=== PATIENT | female | born 1975 | race African-American/Black ===

== ENCOUNTER 2017-04-25 19:01 | Emergency (ER) | payer BC ==
[~2017-04-25] VITALS: Ht 162.6 cm; Wt 98.5 kg
[2017-04-25 19:06] VITALS: TEMP 36.5; Ht 162.6 cm; Wt 98.5 kg
[2017-04-25] MEDS ORDERED: FERR1TAB13 PO (19:45)
[2017-04-25] MEDS ORDERED: CHOL1000 PO (19:45)
[2017-04-25] MEDS ORDERED: SODIUM CHLORIDE 0.9% 500ML 500 ML IV STA (20:26)
--- NOTE | 2017-04-25 20:27 | EMERGENCY ROOM VISIT NOTE ---
History Report prepared by Gwynibe: Radha Johnson Under the Supervision of: Dr. Corona Dolan M.D. First contact with patient: 20:21 Chief Complaint: CHEST PAIN Stated Complaint: LITTLE CHEST PAIN, TINGLING SENSATIONS, BACK PAIN Nursing Triage Summary: Pt c/o bilateral chest pain that started one week ago, pt states "it's more like breast pain". Pt also c/o bilateral hand and feet tingling. Denies SOB or radiation of pain into arm or jaw. History of Present Illness The patient is a 41 year old female who presents to the Emergency Room with complaints of intermittent chest pain for the past 1 week. She rates her discomfort as a 5/10 in severity. The pain does not radiate into her arms or jaw. She also complains of "tingling" in her bilateral hands and feet. Her LMP was last week and normal. She does admit to some clear vaginal discharge recently. She denies any recent shortness of breath. 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 A total of 10 systems reviewed and were otherwise negative. Past Medical & Surgical Medical Problems: (1) Asthma (2) Ectopic (3) Gallstone Family History Cancer Hypertension Social History Smoking Status: Never Smoker Alcohol Use: occasionally Drug Use: none Marital Status: single Housing Status: lives alone Occupation Status: employed Current/Historical Medications Scheduled Cholecalciferol (Vitamin D3), 1,000 INTER.UNIT PO TID Ferrous Sulfate (Kp Ferrous Sulfate), 325 MG PO BID Allergies Coded Allergies: Penicillins (Unverified Allergy, Unknown, HIVES, 04/25/17) Physical Exam Vital Signs Date Time Temp Pulse Resp B/P (MAP) Pulse Ox O2 Delivery O2 Flow Rate FiO2 04/25/17 22:55 76 139/92 04/25/17 22:45 74 16 136/90 100 Room Air 04/25/17 20:38 68 16 139/92 100 Room Air 04/25/17 20:31 Room Air 04/25/17 20:31 Room Air 04/25/17 19:30 77 04/25/17 19:24 Room Air 04/25/17 19:06 36.5 80 20 142/91 99 Room Air Physical Exam GENERAL: Patient is a healthy-appearing well-nourished 41 year old female HEAD: Normocephalic atraumatic EYES: Ocular movements intact pupils equal and react to light OROPHARYNX mucous membranes are moist no exudates present no erythema or edema present NECK: Supple no nuchal rigidity CHEST: Good equal expansion LUNGS: Clear and equal to auscultation CARDIAC: Normal S1 and S2 ABDOMEN: Soft nontender no guarding BACK: No CVA tenderness EXTREMITIES: No pain upon palpation normal muscle strength in all groups no clubbing cyanosis or edema NEURO: Patient is following commands and answering questions appropriately. Alert and oriented x3 Cranial Nerves 2-12 grossly intact Medical Decision & Procedures ER Provider Diagnostic Interpretation: Radiology results as stated below per my review and radiologist interpretation: CHEST ONE VIEW PORTABLE HISTORY: 41 years-old Female CHEST PAIN acute atypical chest pain COMPARISON: None available TECHNIQUE: Portable upright AP view of the chest FINDINGS: Cardiac silhouette is upper limits of normal. No pneumothorax, pleural effusion or focal airspace consolidation. There is mild right hemidiaphragmatic elevation. Bones are grossly intact. IMPRESSION: Mild right hemidiaphragm elevation with otherwise unremarkable chest. The above report was generated using voice recognition software. It may contain grammatical, syntax or spelling errors. Electronically signed by: León Childs M.D. 04/25/2017 9:18 PM Laboratory Results 04/25/17 19:20 Red Blood Count 5.10, Mean Corpuscular Volume 71.8, Mean Corpuscular Hemoglobin 21.2, Mean Corpuscular Hemoglobin Concent 29.5, Mean Platelet Volume 11.0, Neutrophils (%) (Auto) 53.8, Lymphocytes (%) (Auto) 36.7, Monocytes (%) (Auto) 8.1, Eosinophils (%) (Auto) 0.9, Basophils (%) (Auto) 0.3, Neutrophils # (Auto) 3.51, Lymphocytes # (Auto) 2.39, Monocytes # (Auto) 0.53, Eosinophils # (Auto) 0.06, Basophils # (Auto) 0.02 04/25/17 19:20 Test 04/25/17 19:20 04/25/17 21:50 White Blood Count 6.52 K/uL (4.8-10.8) Red Blood Count 5.10 M/uL (4.2-5.4) Hemoglobin 10.8 g/dL (12.0-16.0) Hematocrit 36.6 % (37-47) Mean Corpuscular Volume 71.8 fL (80-100) Mean Corpuscular Hemoglobin 21.2 pg (25-34) Mean Corpuscular Hemoglobin Concent 29.5 g/dl (32-36) Platelet Count 347 K/uL (130-400) Mean Platelet Volume 11.0 fL (7.4-10.4) Neutrophils (%) (Auto) 53.8 % Lymphocytes (%) (Auto) 36.7 % Monocytes (%) (Auto) 8.1 % Eosinophils (%) (Auto) 0.9 % Basophils (%) (Auto) 0.3 % Neutrophils # (Auto) 3.51 K/uL (1.4-6.5) Lymphocytes # (Auto) 2.39 K/uL (1.2-3.4) Monocytes # (Auto) 0.53 K/uL (0.11-0.59) Eosinophils # (Auto) 0.06 K/uL (0-0.5) Basophils # (Auto) 0.02 K/uL (0-0.2) RDW Standard Deviation 43.0 fL (36.4-46.3) RDW Coefficient of Variation 17.3 % (11.5-14.5) Immature Granulocyte % (Auto) 0.2 % Immature Granulocyte # (Auto) 0.01 K/uL (0.00-0.02) Nucleated RBC Absolute Count (auto) 0.05 K/uL (0-0) Nucleated Red Blood Cells % 0.7 % Hypochromasia PRESENT Anisocytosis PRESENT Anion Gap 10.0 mmol/L (3-11) Est Creatinine Clear Calc Drug Dose 108.2 ml/min Estimated GFR () 109.4 Estimated GFR (Non- 94.4 BUN/Creatinine Ratio 21.3 (10-20) Calcium Level 9.0 mg/dl (8.5-10.1) Total Bilirubin 0.5 mg/dl (0.2-1) Direct Bilirubin < 0.1 mg/dl (0-0.2) Aspartate Amino Transf (AST/SGOT) 15 U/L (15-37) Alanine Aminotransferase (ALT/SGPT) 20 U/L (12-78) Alkaline Phosphatase 55 U/L (45-117) Total Creatine Kinase 72 U/L (26-192) Creatine Kinase MB 0.5 ng/ml (0.5-3.6) Creatine Kinase MB Ratio 0.7 (0-3.0) Troponin I < 0.015 ng/ml (0-0.045) Total Protein 8.4 gm/dl (6.4-8.2) Albumin 3.7 gm/dl (3.4-5.0) Lipase 135 U/L (73-393) Urine Color YELLOW Urine Appearance CLEAR (CLEAR) Urine pH 5.0 (4.5-7.5) Urine Specific Dumont 1.029 (1.000-1.030) Urine Protein NEG (NEG) Urine Glucose (UA) NEG (NEG) Urine Ketones TRACE (NEG) Urine Occult Blood NEG (NEG) Urine Nitrite NEG (NEG) Urine Bilirubin NEG (NEG) Urine Urobilinogen NEG (NEG) Urine Leukocyte Esterase NEG (NEG) Labs reviewed by ED physician. Medications Administered Medications (Trade) Dose Ordered Sig/Tonny Route Start Time Stop Time Status Last Admin Dose Admin Sodium Chloride 500 ml @ 999 mls/hr Q31M STAT IV 04/25/17 20:26 04/25/17 20:56 DC 04/25/17 20:38 999 MLS/HR ECG Indication: chest pain Rate (beats per minute): 73 Rhythm: normal sinus Findings: no acute ischemic change, no ectopy ED Course 2021: Past medical records reviewed. The patient was evaluated in room B3. A complete history and physical examination was performed. 2025: NSS 500 ml @ 999 mls/hr IV. 2100: I reevaluated the patient. She is feeling well and resting comfortably. I discussed the patients results and discharge instructions and she verbalized complete understanding and agreement. Medical Decision Prior records/ancillary studies reviewed. Triage Nursing notes reviewed. The patient's history was concerning for chest pain. Differential diagnosis: Etiologies such as cardiac ischemia, aortic dissection, pulmonary embolism, pneumonia, pneumothorax, musculoskeletal, infections, pericarditis, myocarditis , esophageal rupture, gastrointestinal, as well as others were entertained. This is a 41-year-old female who presents emergency department complaining of bilateral hands and feet tingling. The patient also has a number of other complaints including chest tightness as well as abdominal pain. Serial abdominal examinations were performed on the patient in the emergency department and no tended patient exhibit abdominal tenderness or even a surgical abdomen. I do believe that the patient is most likely suffering from hyperventilation as this explains both the chest tightness as well as the numbness bilaterally to hands and feet. She has a normal EKG. As the patient' s symptoms have been ongoing all day I'll expect her troponin to be elevated if this were related to cardiac ischemia. As such it is not. The patient will be staying in the area for 3 months so I encouraged her to follow up with a primary care physician here. Patient was in agreement with the treatment plan. Medication Reconcilliation Current Medication List: was personally reviewed by me Blood Pressure Screening Patient's blood pressure: Normal blood pressure Blood pressure disposition: Did not require urgent referral Impression Primary Impression: Bilateral hand numbness Scribe Attestation The scribe's documentation has been prepared under my direction and personally reviewed by me in its entirety. I confirm that the note above accurately reflects all work, treatment, procedures, and medical decision making performed by me. Departure Information Dispostion Home / Self-Care Referrals No Doctor, Assigned (PCP) Patient Instructions Anxiety Body Response, ED Hyperventilation Syndrome, My [facility] Additional Instructions You were found to have an elevated blood pressure today (>120 sytolic or >90 diastolic). Per medicare guidelines, you need to follow up with this blood pressure screening with your Primary Care Physician (PCP). For a new PCP call [phone]. Culture results are usually available in approx 48 hours You have been examined and treated today on an emergency basis only. This is not a substitute for, or an effort to provide, complete comprehensive medical care. It is impossible to recognize and treat all injuries or illnesses in a single emergency department visit. It is therefore important that you follow up closely with your PCP. Call as soon as possible for an appointment. Thank you for your time and consideration. I look forward to speaking with you again soon. Please don't hesitate to call us if you have any questions.
[2017-04-25 21:12] LABS: BASO % 0.3 %; BASO ABS # 0.02 K/uL (0-0.2); EOS % 0.9 %; HEMATOCRIT 36.6 % (37-47); IG% 0.2 %; LYMPH % 36.7 %; LYMPH ABS # 2.39 K/uL (1.2-3.4); MEAN CELL VOLUME 71.8 fL (80-100); MEAN CORPUSCULAR HEMOGLOBIN 21.2 pg (25-34); MEAN CORPUSCULAR HGB CONC 29.5 g/dl (32-36); MONO % 8.1 %; NEUT % 53.8 %; PLATELET COUNT 347 K/uL (130-400); WHITE BLOOD COUNT 6.52 K/uL (4.8-10.8)
--- NOTE | 2017-04-25 21:20 | DIAGNOSTIC IMAGING REPORT ---
CHEST ONE VIEW PORTABLE HISTORY: 41 years-old Female CHEST PAIN acute atypical chest pain COMPARISON: None available TECHNIQUE: Portable upright AP view of the chest FINDINGS: Cardiac silhouette is upper limits of normal. No pneumothorax, pleural effusion or focal airspace consolidation. There is mild right hemidiaphragmatic elevation. Bones are grossly intact. IMPRESSION: Mild right hemidiaphragm elevation with otherwise unremarkable chest. The above report was generated using voice recognition software. It may contain grammatical, syntax or spelling errors. Electronically signed by: León Childs M.D. 04/25/2017 9:18 PM Dictated Date/Time: 04/25/2017 9:17 PM
[2017-04-25 21:45] LABS: ANISOCYTOSIS PRESENT; COMPLETE YES; HYPOCHROMIA PRESENT
[2017-04-25 22:13] LABS: ALKALINE PHOSPHATASE 55 U/L (45-117); ALT/SGPT 20 U/L (12-78); AST/SGOT 15 U/L (15-37); BLOOD UREA NITROGEN 17 mg/dl (7-18); BUN/CREATININE RATIO 21.3 (10-20); CARBON DIOXIDE 22 mmol/L (21-32); CHLORIDE 107 mmol/L (98-107); CKMB/CK RATIO 0.7 (0-3.0); CREATININE 0.78 mg/dl (0.60-1.20); GLUCOSE 84 mg/dl (70-99); SODIUM 139 mmol/L (136-145)
[2017-04-25 22:45] VITALS: O2SAT 100
[2017-04-25 22:45] LABS: URINE APPEARANCE CLEAR (CLEAR); URINE BILIRUBIN NEG (NEG); URINE COLOR YELLOW; URINE NITRITE NEG (NEG); URINE SPECIFIC GRAVITY 1.029 (1.000-1.030); UROBILINOGEN NEG (NEG); ZZUR CULT IF INDIC CLEAN CATCH NO
[2017-04-25 22:47] LABS: MANUAL MICROSCOPIC REQUIRED? NO; REVIEW REQ? NO
[2017-04-25 22:55] VITALS: BP 139/92; PULSE 76
== END 2017-04-25 22:55 | disposition home or self-care (01) ==
LOC: C.EDB 19:03
DX: R20.0 Anesthesia of skin (principal); J45.909 Unspecified asthma, uncomplicated; Z82.49 Family history of ischemic heart disease and other diseases of the circulatory system